=== PATIENT | female | born 1945 | race Caucasian/White ===

== ENCOUNTER 2017-03-27 10:03 | Emergency (ER) | payer MEDICARE, BC ==
[~2017-03-27] VITALS: Ht 167.6 cm; Wt 71.0 kg
[~2017-03-27 10:03] MED LIST: ASPI81TA81 PO; ATOR10TA15 PO; COEN400C PO; L-LY500T4 PO; LIDO1PAD52 TOPICAL; NEUR300C PO; RISE1TAB13 PO; TRAM50TA PO; TRIA37.53 PO; VITA150T; VITA1CAP2 P-ARTICULR; VITA2000 PO; WARF-20 PO; [UNRECOGNIZED DRUG - OTHER] PO
[2017-03-27 10:10] VITALS: BP 154/80; PULSE 66; RESP 16; TEMP 97.6; O2SAT 98
[2017-03-27] MEDS ORDERED: SODIUM CHLORIDE 0.9% FLUSH 10 ML FLUSH IVF PRN (10:15)
[2017-03-27] MEDS ORDERED: VITA250T3 PO (10:19)
[2017-03-27] MEDS ORDERED: GABA600T PO ×2 (10:20)
[2017-03-27 10:22] VITALS: O2SAT 100
--- NOTE | 2017-03-27 10:58 | RADRPT ---
EXAM DATE/TIME: 03/27/2017 10:40 [place] COMPARISON: No previous studies available for comparison. INDICATIONS : Chest discomfort, tightness, palpitations. MEDICAL HISTORY : Myocardial infarction. SURGICAL HISTORY : CABG. Coronary artery stent. ENCOUNTER: Initial ACUITY: 1 day PAIN SCORE: 0/10 LOCATION: Bilateral chest FINDINGS: A single view of the chest demonstrates the lungs to be symmetrically aerated w with some atelectasis or scarring in the left lingular region. No confluent infiltrate or effusion. Heart size is normal. Aortic valvular prostheses. Median sternotomy wires are intact. Osseous structures are intact. CONCLUSION: 1. Minimal atelectasis or scarring in the left lingula. Lungs are otherwise clear. 2. Postsurgical changes with findings of prior aortic valvular prostheses. Segun Owen MD on March 27, 2017 at 10:54 Board Certified Radiologist. This report was verified electronically.
--- NOTE | 2017-03-27 11:02 | PD ---
HPI Chief Complaint: Cardiac Complaint Time Seen by Provider: 10:33 Travel History International Travel<30 days: No Contact w/Intl Traveler<30days: No Traveled to known affect area: No History of Present Illness HPI patient's patient is a 71-year-old female presents emergency department for evaluation of PVCs. Patient was apparently about to have her wisdom teeth extracted and was giving sedation included Versed and fentanyl as well as propofol when she was noted on organizational research consultant to have fairly frequent PVCs in a multifocal fashion sometimes coupled and tripled. The patient on arrival still fairly sedated from medication, she is coming by her . The patient is able to tell me she is feeling fine has no chest pain no shortness of breath. Symptoms started just prior to arrival, context as above, severity is mild, progression is constant. Sometime into her workup patient states that she actually does frequent PVCs is followed by dental receptionist for it. She states this is nothing new for her. PFSH Past Medical History Hx Anticoagulant Therapy: Yes Cardiovascular Problems: Yes High Cholesterol: Yes Coronary Artery Disease: Yes Hypertension: Yes Medical other: Yes (OSTEOPOROSIS) Myocardial Infarction: Yes Shingles: Yes Tetanus Vaccination: > 5 Years Influenza Vaccination: No Past Surgical History Cardiac Surgery: Yes (AORTIC VALVE REPLACEMENT, MITRAL VALVE REPAIR) Coronary Stent: Yes Hysterectomy: Yes Tonsillectomy: Yes Other Surgery: Yes (CATARACT BILATERAL) Social History Alcohol Use: Yes (OCCASIONAL) Tobacco Use: No Substance Use: No Allergies-Medications (Allergen,Severity, Reaction): Coded Allergies: No Known Allergies (Unverified Adverse Reaction, Unknown, 03/27/17) Reported Meds & Prescriptions Reported Meds & Active Scripts Active Reported Gabapentin 600 Mg Tab 600 Mg PO QID Gabapentin 600 Mg Tab 600 Mg PO BID Vitamin C (Ascorbic Acid) 250 Mg Tab 250 Mg PO DAILY Tramadol (Tramadol HCl) 50 Mg Tab 50 Mg PO Q6H PRN Warfarin 4 Mg Tab 4 Mg PO DAILY Risedronate 150 Mg Tab 150 Mg PO Q30D Aspir-81 (Aspirin) 81 Mg Tabdr 81 Mg PO DAILY [Multaz] 200 Mg PO BID Triamterene-Hydrochlorothiazide 37.5-25 Mg Cap 1 Cap PO DAILY Atorvastatin (Atorvastatin Calcium) 10 Mg Tab 5 Mg PO HS Review of Systems Except as stated in HPI: all other systems reviewed are Neg Physical Exam Narrative GENERAL: Well-developed well-nourished, somewhat groggy from sedation in no obvious distress. SKIN: Focused skin assessment warm/dry. HEAD: Atraumatic. Normocephalic. EYES: Pupils equal and round. No scleral icterus. No injection or drainage. ENT: No nasal bleeding or discharge. Mucous membranes pink and moist. NECK: Trachea midline. No JVD. CARDIOVASCULAR: Regular rate and rhythm, fairly frequent PVCs sometimes 2 or 3 in a minute. No murmur appreciated. 2+ bilateral equal pulses in all 4 extremities. RESPIRATORY: No accessory muscle use. Clear to auscultation. Breath sounds equal bilaterally. GASTROINTESTINAL: Abdomen soft, non-tender, nondistended. Hepatic and splenic margins not palpable. MUSCULOSKELETAL: No obvious deformities. No clubbing. No cyanosis. No edema. NEUROLOGICAL: Awake and alert. No obvious cranial nerve deficits. Motor grossly within normal limits. Normal speech. PSYCHIATRIC: Appropriate mood and affect; insight and judgment normal. Data Data Last Documented VS Vital Signs Date Time Temp Pulse Resp B/P (MAP) Pulse Ox O2 Delivery O2 Flow Rate FiO2 03/27/17 14:56 03/27/17 14:39 69 14 97 Room Air 03/27/17 10:10 97.6 Orders Orders Electrocardiogram (03/27/17 10:10) Ckmb (Isoenzyme) Profile (03/27/17 10:10) Complete Blood Count With Diff (03/27/17 10:10) Comprehensive Metabolic Panel (03/27/17 10:10) Magnesium (Mg) (03/27/17 10:10) Prothrombin Time / Inr (Pt) (03/27/17 10:10) Act Partial Throm Time (Ptt) (03/27/17 10:10) Troponin I (03/27/17 10:10) Chest, Single Ap (03/27/17 10:10) Ecg Monitoring (03/27/17 10:10) Iv Access Insert/Monitor (03/27/17 10:10) Oximetry (03/27/17 10:10) Oxygen Administration (03/27/17 10:10) Sodium Chloride 0.9% Flush (Ns Flush) (03/27/17 10:15) CKMB (03/27/17 10:25) CKMB% (03/27/17 10:25) Troponin I (03/27/17 12:53) Ed Discharge Order (03/27/17 14:11) Labs Laboratory Tests Test 03/27/17 10:25 03/27/17 13:10 White Blood Count 5.8 TH/MM3 Red Blood Count 4.36 MIL/MM3 Hemoglobin 13.7 GM/DL Hematocrit 40.3 % Mean Corpuscular Volume 92.3 FL Mean Corpuscular Hemoglobin 31.4 PG Mean Corpuscular Hemoglobin Concent 34.0 % Red Cell Distribution Width 13.1 % Platelet Count 121 TH/MM3 Mean Platelet Volume 10.5 FL Neutrophils (%) (Auto) 78.6 % Lymphocytes (%) (Auto) 14.7 % Monocytes (%) (Auto) 5.7 % Eosinophils (%) (Auto) 0.7 % Basophils (%) (Auto) 0.3 % Neutrophils # (Auto) 4.5 TH/MM3 Lymphocytes # (Auto) 0.8 TH/MM3 Monocytes # (Auto) 0.3 TH/MM3 Eosinophils # (Auto) 0.0 TH/MM3 Basophils # (Auto) 0.0 TH/MM3 CBC Comment DIFF FINAL Differential Comment Prothrombin Time 12.3 SEC Prothromb Time International Ratio 1.1 RATIO Activated Partial Thromboplast Time 28.5 SEC Blood Urea Nitrogen 14 MG/DL Creatinine 0.86 MG/DL Random Glucose 122 MG/DL Total Protein 6.8 GM/DL Albumin 3.7 GM/DL Calcium Level 7.9 MG/DL Magnesium Level 2.3 MG/DL Alkaline Phosphatase 67 U/L Aspartate Amino Transf (AST/SGOT) 21 U/L Alanine Aminotransferase (ALT/SGPT) 24 U/L Total Bilirubin 0.7 MG/DL Sodium Level 134 MEQ/L Potassium Level 4.0 MEQ/L Chloride Level 97 MEQ/L Carbon Dioxide Level 27.9 MEQ/L Anion Gap 9 MEQ/L Estimat Glomerular Filtration Rate 65 ML/MIN Total Creatine Kinase 121 U/L Creatine Kinase MB 1.8 NG/ML Troponin I LESS THAN 0.02 NG/ML LESS THAN 0.02 NG/ML MDM Medical Decision Making Medical Screen Exam Complete: Yes Emergency Medical Condition: Yes Differential Diagnosis Palpitations, ACS unlikely, electrolyte abnormality. Narrative Course Patient fairly groggy on arrival, she did have 2 sets of cardiac enzymes which were negative. EKG did show some multifocal PVCs but no signs of ischemia. After the patient awoke more from her sedation she did relate a history that this is nothing new for her and she does have frequent PVCs. She is seen on reevaluation sitting upright in a stretcher reading a book and wishes for discharge. Think this is reasonable follow up with her dental receptionist and discussed return to ED criteria Diagnosis Primary Impression: PVCs (premature ventricular contractions) Disposition: 01 DISCHARGE HOME Condition: Stable Wilber Hernandez MD Mar 27, 2017 11:02
[2017-03-27 11:05] LABS: AUTOMATED NEUTROPHIL # 4.5 TH/MM3 (1.8-7.7); BASOPHIL % 0.3 % (0.0-2.0); EOSINOPHIL % 0.7 % (0.0-4.0); HEMATOCRIT 40.3 % (35.0-46.0); HEMO FLAGS DIFF FINAL; LYMPH % 14.7 % (9.0-44.0); LYMPHOCYTE # 0.8 TH/MM3 (1.0-4.8); MEAN CELL VOLUME 92.3 FL (80.0-100.0); MEAN CORPUSCULAR HEMOGLOBIN 31.4 PG (27.0-34.0); MONO % 5.7 % (0.0-8.0); NEUT % 78.6 % (16.0-70.0); PLATELET COUNT 121 TH/MM3 (150-450); RED BLOOD COUNT 4.36 MIL/MM3 (4.00-5.30); RED CELL DISTRIBUTION WIDTH 13.1 % (11.6-17.2); WHITE BLOOD COUNT 5.8 TH/MM3 (4.0-11.0)
[2017-03-27 11:12] LABS: APTT (PATIENT) 28.5 SEC (24.3-30.1); INTERNATIONAL NORMALIZED RATIO 1.1 RATIO; PROTHROMBIN TIME - PATIENT 12.3 SEC (9.8-11.6)
[2017-03-27 11:20] VITALS: BP 142/71; PULSE 61; RESP 14; O2SAT 96
[2017-03-27 11:30] LABS: ANION GAP 9 MEQ/L (5-15); AST (GOT) 21 U/L (15-37); BICARBONATE 27.9 MEQ/L (21.0-32.0); BLOOD UREA NITROGEN 14 MG/DL (7-18); CHLORIDE 97 MEQ/L (98-107); GLOMERULAR FILTRATION RATE 65 ML/MIN (>89); MAGNESIUM 2.3 MG/DL (1.5-2.5); SODIUM (NA) 134 MEQ/L (136-145)
[2017-03-27 11:35] LABS: ALKALINE PHOSPHATASE 67 U/L (45-117); ALT (GPT) 24 U/L (10-53); CREATINE KINASE 121 U/L (26-192); TOTAL BILIRUBIN ADULT 0.7 MG/DL (0.2-1.0)
[2017-03-27 11:47] LABS: CKMB 1.8 NG/ML (0.5-3.6)
[2017-03-27 13:21] VITALS: BP 143/80; PULSE 66; RESP 14; O2SAT 96
[2017-03-27 14:39] VITALS: BP 142/76; PULSE 69; RESP 14; O2SAT 97
--- NOTE | 2017-03-28 16:03 | EKG ---
Date Performed: 03/27/2017 Time Performed: 10:11:08 PTAGE: 71 years EKG: Sinus rhythm WITH SINUS ARRHYTHMIA NONSPECIFIC T-WAVE ABNORMALITY BORDERLINE ECG NO PREVIOUS TRACING DOCTOR: Steve Zazueta Interpretating Date/Time 03/28/2017 16:02:25
== END 2017-03-27 14:57 | disposition home or self-care (01) ==
LOC: NEPC 10:03
DX: I49.3 Ventricular premature depolarization (principal); R94.31 Abnormal electrocardiogram [ECG] [EKG]; E78.00 Pure hypercholesterolemia, unspecified; I25.10 Atherosclerotic heart disease of native coronary artery without angina pectoris; I10 Essential (primary) hypertension; M81.0 Age-related osteoporosis without current pathological fracture; I25.2 Old myocardial infarction; Z79.01 Long term (current) use of anticoagulants; Z79.82 Long term (current) use of aspirin
CPT/HCPCS: 71010; 80053; 82550; 82552; 83735; 84484; 85025; 85610; 85730; 93005; 99285